=== PATIENT | male | born 1935 | race Caucasian/White ===

== ENCOUNTER 2016-10-27 23:46 | Inpatient (IN) | payer MEDICARE ==
[~2016-10-27] VITALS: Ht 154.9 cm; Wt 84.2 kg
[~2016-10-27 23:46] MED LIST: AMOX1TAB64 PO; GUAI600T22 PO; HYDR1TAB12 PO; LISI5TAB7 PO; METO50TA4 PO; NONE PER PT
[2016-10-28] MEDS ORDERED: SODIUM CHLORIDE FLUSH 10ML SYR IVF ONE
[2016-10-28] MEDS ORDERED: CEFAZOLIN PMX 1GM/50ML 50 ML IVPB ONE
[2016-10-28] MEDS ORDERED: ONDANSETRON 2MG/ML, 2ML IVPush ONE
[2016-10-28] MEDS ORDERED: SODIUM CHLORIDE 0.9% 1,000ML IVBOLUS ONE
[2016-10-28] MEDS ORDERED: HYDROmorphone 1 MG/ML, 1ML ONE ×2 (00:03→00:55)
[2016-10-28] MEDS ORDERED: CEFAZOLIN PMX 1GM/50ML 50 ML ONE (00:03)
[2016-10-28] MEDS ORDERED: ONDANSETRON 2MG/ML, 2ML ONE ×3 (00:03→10:47)
[2016-10-28] MEDS: HYDROmorphone 1 MG/ML, 1ML IVPush PRN ×2 (00:10→00:58)
[2016-10-28 00:38] LABS: BLOOD UREA NITROGEN 31 mg/dL (7-18)
[2016-10-28 02:39] VITALS: BP 121/64
[2016-10-28] MEDS ORDERED: OMNIPAQUE 350 MG/ML, 100ML BOTTLE ONE (03:28)
[2016-10-28] MEDS ORDERED: BACITRACIN 50,000 UNIT ONE (04:01)
[2016-10-28] MEDS ORDERED: FENTANYL PF 100 MCG/2ML ONE (05:38)
[2016-10-28] MEDS: SODIUM CHLORIDE 0.9% 1,000 ML IV SCH ×3 (05:39→18:43)
[2016-10-28] MEDS ORDERED: TRAZODONE 50MG TABLET PO PRN (06:00)
[2016-10-28] MEDS ORDERED: LABETALOL 5MG/ML, 20ML IV PRN ×2 (06:00→06:30)
[2016-10-28] MEDS ORDERED: ACETAMINOPHEN 325 MG TABLET PO PRN (06:00)
[2016-10-28] MEDS ORDERED: DOCUSATE 100 MG CAPSULE PO PRN (06:00)
[2016-10-28] MEDS ORDERED: BISACODYL 10 MG SUPP PR PRN (06:00)
[2016-10-28] MEDS ORDERED: MORPHINE SULFATE 4 MG/ML, 1ML IVPush PRN (06:00)
[2016-10-28] MEDS: HEPARIN 5,000 UNITS/ML, 1ML SQ SCH ×3 (06:00→21:16)
[2016-10-28] MEDS ORDERED: POLYETHYLENE GLYCOL 17 GM PACKET PO PRN (06:00)
[2016-10-28] MEDS ORDERED: ONDANSETRON 2MG/ML, 2ML IVPush PRN ×2 (06:30→09:00)
[2016-10-28] MEDS ORDERED: OXYcodone 5 MG/5 ML ORAL.SOL UDC PO PRN (06:30)
[2016-10-28] MEDS ORDERED: FENTANYL PF 100 MCG/2ML IV PRN (06:30)
[2016-10-28] MEDS ORDERED: hydrALAzine 20 MG/ML, 1ML IV PRN (06:30)
[2016-10-28] MEDS ORDERED: HYDROmorphone 1 MG/ML, 1ML IV PRN (06:30)
[2016-10-28] MEDS ORDERED: OXYcodone 5 MG/5 ML ORAL.SOL UDC ONE (06:48)
[2016-10-28] MEDS: FOLIC ACID 1 MG TABLET PO SCH (08:07)
[2016-10-28] MEDS: THIAMINE 100MG TABLET PO SCH (08:07)
[2016-10-28] MEDS ORDERED: DIPHTHERIA-TETANUS ADULT 0.5ML IM-VACC SCH (08:30)
[2016-10-28] MEDS ORDERED: PHARMACY MAY ADJ FOR RENAL FX MC PRN (09:00)
[2016-10-28] MEDS ORDERED: PROMETHAZINE 12.5 MG SUPP PR PRN (09:00)
[2016-10-28] MEDS ORDERED: ONDANSETRON ODT 4 MG PO PRN (09:00)
[2016-10-28] MEDS ORDERED: PROMETHAZINE 25 MG SUPP PR ONE (09:37)
[2016-10-28] MEDS ORDERED: PROPOFOL 10 MG/ML, 20ML ONE (10:47)
[2016-10-28] MEDS ORDERED: CEFAZOLIN 1,000 MG ONE (10:47)
[2016-10-28] MEDS ORDERED: DEXAMETHASONE 4 MG/ML, 1ML ONE (10:47)
[2016-10-28 13:02] VITALS: BP 136/65
[2016-10-28] MEDS: CEFAZOLIN PMX 1GM/50ML 50 ML IVPB SCH ×2 (13:11→21:15)
[2016-10-28] MEDS ORDERED: BENZOCAINE 20% SPRAY 0.5ML TP PRN (17:30)
[2016-10-28 19:00] VITALS: BP 120/63
[2016-10-29 00:08] VITALS: BP 120/60
[2016-10-29 02:57] VITALS: BP 103/61
[2016-10-29 05:26] LABS: BLOOD UREA NITROGEN 15 mg/dL (7-18)
[2016-10-29] MEDS: SODIUM CHLORIDE 0.9% 1,000 ML IV SCH (05:39)
[2016-10-29] MEDS: CEFAZOLIN PMX 1GM/50ML 50 ML IVPB SCH (05:39)
[2016-10-29] MEDS: HEPARIN 5,000 UNITS/ML, 1ML SQ SCH (06:37)
[2016-10-29 07:11] VITALS: BP 121/67
[2016-10-29] MEDS: FOLIC ACID 1 MG TABLET PO SCH (09:20)
[2016-10-29] MEDS: THIAMINE 100MG TABLET PO SCH (09:22)
[2016-10-29] MEDS ORDERED: DOCU-30 PO (09:48)
[2016-10-29] MEDS ORDERED: HYDR-3240 PO (09:48)
[2016-10-29] MEDS ORDERED: FOLI-17 PO (09:48)
[2016-10-29] MEDS ORDERED: Thiamine Hcl PO (09:48)
[2016-10-29] MEDS ORDERED: ACET325T14 PO (09:48)
== END 2016-10-29 13:13 | disposition home or self-care (01) | DRG 463 ==
LOC: ED 23:59 → EDIP 10-28 01:13 → 4NOR 10-28 02:15 → UNDODISIN 10-29 12:30 → DCLOUNGE 10-29 12:33
PROVIDERS: ADMIT Internal Medicine; ATTEND Internal Medicine
PROC: 2W3DX1Z Immobilization of Left Lower Arm using Splint (ICD-10-PCS; 2016-10-28)
PROC: 2W3DX1Z Immobilization of Left Lower Arm using Splint (ICD-10-PCS; 2016-10-28)
PROC: 0JBH0ZZ Excision of Left Lower Arm Subcutaneous Tissue and Fascia, Open Approach (ICD-10-PCS; principal; 2016-10-28 04:30)
DX: S52.602B Unspecified fracture of lower end of left ulna, initial encounter for open fracture type I or II (principal); N17.0 Acute kidney failure with tubular necrosis; D68.59 Other primary thrombophilia; F10.20 Alcohol dependence, uncomplicated; F12.90 Cannabis use, unspecified, uncomplicated; G89.11 Acute pain due to trauma; I48.0 Paroxysmal atrial fibrillation; I10 Essential (primary) hypertension; W01.0XXA Fall on same level from slipping, tripping and stumbling without subsequent striking against object, initial encounter; Y93.01 Activity, walking, marching and hiking; I44.7 Left bundle-branch block, unspecified; N40.0 Benign prostatic hyperplasia without lower urinary tract symptoms; Z85.828 Personal history of other malignant neoplasm of skin; Z86.74 Personal history of sudden cardiac arrest; Y92.096 Garden or yard of other non-institutional residence as the place of occurrence of the external cause; Y99.8 Other external cause status; Z95.0 Presence of cardiac pacemaker; Z85.89 Personal history of malignant neoplasm of other organs and systems
CPT/HCPCS: 29125; 36415; 71010; 71260; 74177; 76000; 80048; 80307; 82040; 85025; 86850; 86900; 93005; 96365; 96375; J0690; J1100; J1170; J1644; J2405; J2704; J3010; Q9967; J7030

== ENCOUNTER → 2017-09-27 | Outpatient (CLI) | payer MEDICARE ==
[~2017-09-27] MED LIST changes: +ACET325T14 PO; +DOCU-131 PO; +FOLI-17 PO; -GUAI600T22 PO; +GUAI600T31 PO; +HYDR-3240 PO; +Thiamine Hcl PO
== END | disposition home or self-care (01) ==
LOC: CVU 07:27
PROVIDERS: ATTEND Internal Medicine Cardiovascular Disease
DX: I35.1 Nonrheumatic aortic (valve) insufficiency (principal); Z95.0 Presence of cardiac pacemaker
CPT/HCPCS: 93306

== ENCOUNTER → 2018-02-24 | Outpatient (CLI) | payer MEDICARE | END | disposition home or self-care (01) | LOC: PETCFH 09:42 | PROVIDERS: ATTEND Student in an Organized Health Care Education/Training Program | DX: C61 Malignant neoplasm of prostate (principal); N40.1 Benign prostatic hyperplasia with lower urinary tract symptoms; R39.15 Urgency of urination | CPT/HCPCS: 78306; A9503 ==

== ENCOUNTER → 2018-04-29 | Outpatient (CLI) | payer MEDICARE ==
[~2018-04-29] MED LIST changes: +OMNIPAQUE 350 MG/ML, 100ML BOTTLE ONE
[2018-04-29 13:16] LABS: CREATININE 1.27 mg/dL (0.7-1.3)
== END | disposition home or self-care (01) ==
LOC: RAD 12:38
PROVIDERS: ATTEND Student in an Organized Health Care Education/Training Program
DX: N42.89 Other specified disorders of prostate (principal); N40.2 Nodular prostate without lower urinary tract symptoms
CPT/HCPCS: 36415; 74178; 82565; Q9967

== ENCOUNTER 2018-12-25 19:53 | Emergency (ER) | payer MEDICARE ==
[~2018-12-25] VITALS: Ht 180.3 cm; Wt 85.0 kg
[~2018-12-25 19:53] MED LIST changes: -HYDR1TAB12 PO; +HYDR1TAB13 PO; -OMNIPAQUE 350 MG/ML, 100ML BOTTLE ONE
--- NOTE | 2018-12-25 20:59 | NUR ---
Pt presents to ED for palpitations. Pt states he feels a mechanical vibration in his chest in the location of his pacemaker. Pt states 5 episodes lasting 2-3 seconds. Pt denies CP or SOB. per triage note
[2018-12-25 21:06] VITALS: BP 141/64
--- NOTE | 2018-12-25 22:35 | NUR ---
STONEY IS CHECKING [facility] PACER BY DEVICE NOW AT BED SIDE
--- NOTE | 2018-12-25 22:47 | NUR ---
given dc instruction with follow up with box turner within 3 days pt understood pt up ambualted to check out with stable gait
== END 2018-12-25 22:49 | disposition home or self-care (01) ==
LOC: ED 21:43
DX: I44.7 Left bundle-branch block, unspecified (principal); Z95.0 Presence of cardiac pacemaker; I10 Essential (primary) hypertension; I48.91 Unspecified atrial fibrillation; Z85.9 Personal history of malignant neoplasm, unspecified
CPT/HCPCS: 71045; 93005; 99283

== ENCOUNTER 2019-02-01 09:23 | Outpatient (CLI) | payer MEDICARE ==
[2019-02-01 13:15] LABS: CHLORIDE 109 mmol/L (98-107)
[2019-02-01 13:25] LABS: ALANINE AMINOTRANSFERASE 75 U/L (12-78); ALBUMIN 3.6 g/dL (3.4-5.0); ALKALINE PHOSPHATASE 72 U/L (45-117); ANION GAP 7 mmol/L (5-15); BILIRUBIN,TOTAL 1.2 mg/dL (0.2-1.0); CALCIUM 8.8 mg/dL (8.5-10.1); CHOL/HDL RATIO 2.1; CHOLESTEROL, TOTAL 100 mg/dL (140-239); CREATININE 1.35 mg/dL (0.7-1.3); HDL CHOL % 47 % (26-37); HDL CHOLESTEROL (DIRECT) 47 mg/dL (40-60); LDL CHOLESTEROL,CALCULATED 46 mg/dL (54-169); TRIGLYCERIDES 33 mg/dL (50-200); VLDL CHOLESTEROL 7 mg/dL (0-25)
== END 2019-02-01 23:59 | disposition home or self-care (01) ==
LOC: CFH 09:23
PROVIDERS: ATTEND Internal Medicine Cardiovascular Disease
DX: I35.1 Nonrheumatic aortic (valve) insufficiency (principal); I10 Essential (primary) hypertension; R55 Syncope and collapse
CPT/HCPCS: 36415; 80053; 80061